=== PATIENT | female | born 1970 | race Caucasian/White ===

== ENCOUNTER → 2020-11-16 | Outpatient (CLI) | payer OTHER ==
[~2020-11-16] MED LIST: CYCLOBENZAPRINE10 MG PO; FLORANEX GRANU1 EACH PO; LEVOTHYROXINE125 MCG PO; LEVOTHYROXINE50 MCG PO; LEVSIN TAB 00.125 MG SL; LISINOPRIL40 MG PO; LOPRESSOR 25 MG25 MG PO; ONDANSETRON4 MG/2 M2 IVP; PHENAZOPYRIDIN100 MG PO; PROAMATINE 2.52.5 MG PO; PROTONIX 40 MG40 M1 PO; VITAMIN C1000 MG PO
== END ==
LOC: MAMO 08:15
DX: Z12.31 Encounter for screening mammogram for malignant neoplasm of breast (principal); N63.11 Unspecified lump in the right breast, upper outer quadrant; N63.22 Unspecified lump in the left breast, upper inner quadrant; N63.21 Unspecified lump in the left breast, upper outer quadrant; R92.1 Mammographic calcification found on diagnostic imaging of breast
CPT/HCPCS: 77063; 77067

== ENCOUNTER → 2021-01-11 | Outpatient (CLI) | payer OTHER | LOC: HEART 5 14:43 | DX: R00.1 Bradycardia, unspecified (principal); R00.2 Palpitations ==

== ENCOUNTER 2021-02-03 21:30 | Inpatient (IN) | payer OTHER ==
[~2021-02-03] VITALS: Ht 167.6 cm; Wt 93.4 kg
[2021-02-04] MEDS ORDERED: PHENAZOPYRIDIN100 MG PO (02:42)
[2021-02-04] MEDS ORDERED: LEVSIN TAB 00.125 MG SL (02:42)
[2021-02-04] MEDS ORDERED: LISINOPRIL40 MG PO (02:43)
[2021-02-04] MEDS ORDERED: LEVOTHYROXINE50 MCG PO (02:43)
[2021-02-04] MEDS ORDERED: PROAMATINE 2.52.5 MG PO (02:44)
[2021-02-04] MEDS ORDERED: CYCLOBENZAPRINE10 MG PO (02:44)
[2021-02-04] MEDS ORDERED: LOPRESSOR 25 MG25 MG PO (02:45)
[2021-02-04] MEDS ORDERED: VITAMIN C1000 MG PO (02:46)
[2021-02-04 04:57] LABS: HEMOGLOBIN 11.8 gm/dl (12.3-15.3); RED BLOOD COUNT 3.87 M/UL (4.00-5.10); WHITE BLOOD COUNT 6.6 K/UL (4.5-11.0)
[2021-02-04 05:11] LABS: BUN/CREATININE RATIO 10 (0-10)
[2021-02-05 03:12] LABS: HEMOGLOBIN 11.2 gm/dl (12.3-15.3); RED BLOOD COUNT 3.72 M/UL (4.00-5.10); WHITE BLOOD COUNT 7.5 K/UL (4.5-11.0)
[2021-02-05 03:40] LABS: BUN/CREATININE RATIO 17 (0-10)
[2021-02-06 07:39] LABS: HEMOGLOBIN 10.6 gm/dl (12.3-15.3); RED BLOOD COUNT 3.73 M/UL (4.00-5.10)
[2021-02-06 07:44] LABS: WHITE BLOOD COUNT 12.8 K/UL (4.5-11.0)
[2021-02-06 08:02] LABS: BUN/CREATININE RATIO 17 (0-10)
[2021-02-07 03:10] LABS: HEMOGLOBIN 10.7 gm/dl (12.3-15.3); RED BLOOD COUNT 3.67 M/UL (4.00-5.10)
[2021-02-07 03:20] LABS: WHITE BLOOD COUNT 20.9 K/UL (4.5-11.0)
[2021-02-07 03:31] LABS: BUN/CREATININE RATIO 13 (0-10)
[2021-02-08 05:27] LABS: HEMOGLOBIN 9.2 gm/dl (12.3-15.3)
[2021-02-08 05:31] LABS: RED BLOOD COUNT 3.05 M/UL (4.00-5.10)
[2021-02-08 05:52] LABS: BUN/CREATININE RATIO 13 (0-10)
[2021-02-09 02:47] LABS: HEMOGLOBIN 9.5 gm/dl (12.3-15.3); RED BLOOD COUNT 3.19 M/UL (4.00-5.10); WHITE BLOOD COUNT 19.9 K/UL (4.5-11.0)
[2021-02-09 03:17] LABS: BUN/CREATININE RATIO 13 (0-10)
[2021-02-10 04:17] LABS: HEMOGLOBIN 8.5 gm/dl (12.3-15.3)
[2021-02-10 04:19] LABS: RED BLOOD COUNT 2.83 M/UL (4.00-5.10); WHITE BLOOD COUNT 14.5 K/UL (4.5-11.0)
[2021-02-10 04:49] LABS: BUN/CREATININE RATIO 14 (0-10)
[2021-02-11 05:42] LABS: HEMOGLOBIN 8.4 gm/dl (12.3-15.3); RED BLOOD COUNT 2.82 M/UL (4.00-5.10); WHITE BLOOD COUNT 10.2 K/UL (4.5-11.0)
[2021-02-11 06:02] LABS: BUN/CREATININE RATIO 13 (0-10)
[2021-02-12 04:38] LABS: HEMOGLOBIN 8.1 gm/dl (12.3-15.3); RED BLOOD COUNT 2.75 M/UL (4.00-5.10); WHITE BLOOD COUNT 8.1 K/UL (4.5-11.0)
[2021-02-12 04:54] LABS: BUN/CREATININE RATIO 13 (0-10)
[2021-02-13 03:18] LABS: HEMOGLOBIN 8.6 gm/dl (12.3-15.3); RED BLOOD COUNT 2.89 M/UL (4.00-5.10); WHITE BLOOD COUNT 7.7 K/UL (4.5-11.0)
[2021-02-13 03:41] LABS: BUN/CREATININE RATIO 11 (0-10)
[2021-02-13] MEDS ORDERED: ONDANSETRON4 MG/2 M2 IVP (10:24)
[2021-02-13] MEDS ORDERED: LEVOTHYROXINE125 MCG PO (10:24)
[2021-02-13] MEDS ORDERED: LISINOPRIL40 MG PO (10:24)
[2021-02-13] MEDS ORDERED: PROTONIX 40 MG40 M1 PO (10:24)
[2021-02-13] MEDS ORDERED: FLORANEX GRANU1 EACH PO (10:24)
--- NOTE | 2021-02-13 12:13 | NUR ---
HAVE TRIED TO CALL HOME HEALTH THREE TIMES, EACH TIME I HAVE BEEN DISCONNECTED WHEN TRANSFERED TO SPEAK TO THE NURSE. LEFT A MESSAGE FOR THEM TO CONTACT ME.
== END 2021-02-13 12:22 | disposition home or self-care (01) | DRG 444 ==
LOC: MED SURG 4 21:30 → M/S 02-04 02:34
PROVIDERS: Internal Medicine; Internal Medicine Gastroenterology; Physician Assistant; ADMIT Internal Medicine
PROC: 0F798ZZ Dilation of Common Bile Duct, Via Natural or Artificial Opening Endoscopic (ICD-10-PCS; 2021-02-05)
PROC: 0FCC8ZZ Extirpation of Matter from Ampulla of Vater, Via Natural or Artificial Opening Endoscopic (ICD-10-PCS; 2021-02-05)
PROC: 0F7C8ZZ Dilation of Ampulla of Vater, Via Natural or Artificial Opening Endoscopic (ICD-10-PCS; principal; 2021-02-05 11:00)
PROC: B24BZZ4 Ultrasonography of Heart with Aorta, Transesophageal (ICD-10-PCS; 2021-02-10)
DX: K83.1 Obstruction of bile duct (principal); K85.90 Acute pancreatitis without necrosis or infection, unspecified; N39.0 Urinary tract infection, site not specified; J90 Pleural effusion, not elsewhere classified; E87.1 Hypo-osmolality and hyponatremia; R18.8 Other ascites; I31.3 Pericardial effusion (noninflammatory); J98.11 Atelectasis; M62.82 Rhabdomyolysis; Z20.822 Contact with and (suspected) exposure to COVID-19; D50.9 Iron deficiency anemia, unspecified; F17.210 Nicotine dependence, cigarettes, uncomplicated; E87.6 Hypokalemia; E86.0 Dehydration; K59.00 Constipation, unspecified; E03.9 Hypothyroidism, unspecified; E66.9 Obesity, unspecified; N60.02 Solitary cyst of left breast; I48.0 Paroxysmal atrial fibrillation; N60.01 Solitary cyst of right breast; L27.0 Generalized skin eruption due to drugs and medicaments taken internally; T50.995A Adverse effect of other drugs, medicaments and biological substances, initial encounter; K76.0 Fatty (change of) liver, not elsewhere classified; E87.70 Fluid overload, unspecified; E87.8 Other disorders of electrolyte and fluid balance, not elsewhere classified; I10 Essential (primary) hypertension; I95.9 Hypotension, unspecified; Z90.49 Acquired absence of other specified parts of digestive tract; Z88.6 Allergy status to analgesic agent; Z88.8 Allergy status to other drugs, medicaments and biological substances; Z83.79 Family history of other diseases of the digestive system; Z79.01 Long term (current) use of anticoagulants; Z68.33 Body mass index [BMI] 33.0-33.9, adult
CPT/HCPCS: ECHO; 36415; 71045; 71046; 71275; 74181; 74330; 80048; 80053; 80061; 80076; 80202; 82150; 82248; 82550; 82553; 83690; 83735; 84132; 84443; 84484; 84703; 85025; 85027; 85379; 85610; 87040; 87086; 93005; 93306; 96372; 96374; 96375; 96376; 97116-GP-CQ; 97162; 97165; C1769; C2617; C9113; G0378; G0379; J0295; J0330; J0696; J1100; J1170; J1335; J1650; J1885; J1956; J2250; J2270; J2405; J2550; J2704; J2710; J3010; J3370; J3480; J7070; J7120; P9047; Q9962; Q9967; U0002